=== PATIENT | male | born 1965 | race Caucasian/White ===

== ENCOUNTER → 2017-04-09 | Outpatient (CLI) | payer OTHER ==
--- NOTE | 2017-04-09 13:46 | RAD ---
2-D mammogram Indication: Lump under left nipple for a month, getting better now after antibiotics. History of trauma to the chest. Technique: 2-D mammogram Comparison: None Findings: Scattered fibroglandular tissues. There is a 1.9 x 1.3 cm oval-shaped isodense lesion within the left breast just posterior to the nipple. Right breast within normal limits. No suspicious calcifications. Impression: Subareolar lesion may represent gynecomastia or hematoma given recent history of chest trauma. Ultrasound recommended for further evaluation. BI-RADS 0: Incomplete. BI-RADS 0 -- incomplete assessment MTDD
--- NOTE | 2017-04-09 13:48 | RAD ---
Ultrasound of the left breast Indication: 51-year-old male with left breast lump for a month. Patient reports history of chest trauma. According to patient lesion is getting better after being on antibiotic therapy. Technique: Targeted Grayscale and color Doppler ultrasound images of the left breast obtained. Comparison: Mammogram from the same day Findings: There is an ill-defined 2.1 x 1.0 x 2.4 cm hypoechoic lesion just posterior to the nipple demonstrating no significant vascularity. Impression: Retroareolar left breast lesion as described above. This most likely represent gynecomastia. However, follow-up ultrasound in 3 months recommended. MTDD
== END | disposition home or self-care (01) ==
LOC: MAMMO 10:56
PROVIDERS: ATTEND Internal Medicine
DX: R92.8 Other abnormal and inconclusive findings on diagnostic imaging of breast (principal)
CPT/HCPCS: 76641; G0204; 77066

== ENCOUNTER → 2017-07-06 | Outpatient (CLI) | payer OTHER ==
--- NOTE | 2017-07-06 10:20 | RAD ---
Left breast ultrasound, 07/06/2017: History: Follow-up breast lump Comparison is made to a study from 04/09/2017. There is a persistent retroareolar hypoechoic density on the left which is oval to flame-shaped. It measures 1.6 x 1.7 x 0.8 cm compared to measurements of 2.4 x 2.1 x 0.9 cm on the previous study. The appearance suggests mild gynecomastia which has improved slightly. This is supported by the fact that there is a smaller, but similarly shaped hypoechoic area in the retroareolar region of the asymptomatic right breast. No new abnormality is detected. IMPRESSION: Regressing left retroareolar hypoechoic process most compatible with gynecomastia. Clinical surveillance is suggested.
== END | disposition home or self-care (01) ==
LOC: US 09:21
PROVIDERS: ATTEND Internal Medicine
DX: N62 Hypertrophy of breast (principal)
CPT/HCPCS: 76641